=== PATIENT | male | born 1965 | race Caucasian/White ===

== ENCOUNTER 2025-04-23 11:08 | Day surgery (SDC) | payer SELFPAY ==
[2025-04-22 12:12] VITALS: BMI 28.7
[2025-04-23] MEDS ORDERED: Bacitracin Zinc Ointment 30 gm TUBE ONE (12:40)
[2025-04-23 12:47] LABS: #Basophils 0.06 10x3/uL (0.0-0.2); #Eosinophils 0.20 10x3/uL (0.0-0.7); #Monocytes 0.41 10x3/uL (0.11-0.59); #Neutrophils 3.43 10x3/uL (1.40-6.50); %Basophils 1.1 % (0.0-1.0); %Eosinophils 3.8 % (0.0-10.0); %Lymphocytes 21.3 % (21.0-51.0); %Monocytes 7.8 % (0.0-10.0); %Neutrophils 65.4 % (42.0-75.0); Hematocrit 43.4 % (42.0-52.0); Hemoglobin 14.2 g/dL (14.0-18.0); Mean Corpuscular Hemoglobin 29.1 pg (27.0-31.0); Mean Corpuscular Volume 88.9 fL (78.0-98.0); Platelet Count 239 10x3/uL (130-400); Red Blood Cell (RBC) Count 4.88 mill/uL (4.70-6.10); White Blood Cell (WBC) Count 5.25 10x3/uL (4.8-10.8)
[2025-04-23] MEDS ORDERED: Ropivacaine 0.5% HCl/PF (150 MG/30 ML VIAL) ONE (13:12)
[2025-04-23] MEDS ORDERED: CEFAZOLIN 2 GM VIAL ONE (13:40)
[2025-04-23] MEDS ORDERED: Ketorolac Tromethamine 30 MG (1 mL) VIAL ONE (13:44)
[2025-04-23] MEDS ORDERED: PROPOFOL 20 ML ONE (13:44)
[2025-04-23] MEDS ORDERED: Lidocaine 1% PF 5 ML VIAL ONE (13:44)
[2025-04-23] MEDS ORDERED: Ondansetron PF 4 MG/2 ML Vial ONE (13:44)
[2025-04-23] MEDS ORDERED: Heparin 10,000 UNITS/ 10 ML VIAL ONE (16:03)
[2025-04-23] MEDS ORDERED: Lidocaine 2% PF 100 mg/5 ml Syringe ONE (16:03)
[2025-04-23] MEDS ORDERED: Hetastarch 6% 500 ML 500 ML ONE (16:04)
[2025-04-23] MEDS ORDERED: Acetaminophen 500 MG TAB ONE (18:44)
== END 2025-04-23 20:02 | disposition home or self-care (01) ==
LOC: SDC 11:08
PROVIDERS: ATTEND Orthopaedic Surgery Hand Surgery
PROC: 0LQ80ZZ Repair Left Hand Tendon, Open Approach (ICD-10-PCS; principal; 2025-04-23)
DX: S56.022A Laceration of flexor muscle, fascia and tendon of left thumb at forearm level, initial encounter (principal); S64.40XA Injury of digital nerve of unspecified finger, initial encounter; X58.XXXA Exposure to other specified factors, initial encounter
CPT/HCPCS: 85025; 93005; 93010; C1713; J0665; J0702; J1644; J1885; J2003; J2250; J2405; J2704; J2795; J3010